=== PATIENT | male | born 1990 | race Two or more races ===

== ENCOUNTER 2022-08-12 19:13 | Emergency (ER) | payer OTHER ==
[~2022-08-12] VITALS: Ht 182.9 cm; Wt 69.5 kg
[2022-08-12 19:50] VITALS: BP 136/91
[2022-08-12] MEDS ORDERED: TETanus/Pertussis (Acell)/Diphther VAC/PF (Tdap-Adult) 0.5ml syringe IMVAC ONE (19:55)
[2022-08-12] MEDS ORDERED: bacitracin 15gm ointment TP ONE (19:55)
[2022-08-12] MEDS ORDERED: amox tr/potassium clavulanate 875/125mg TAB PO ONE (19:55)
[2022-08-12] MEDS ORDERED: AMOX-117 PO (20:26)
== END 2022-08-12 20:58 | disposition home or self-care (01) ==
LOC: ER 19:15
DX: S51.852A Open bite of left forearm, initial encounter (principal); S41.052A Open bite of left shoulder, initial encounter; S21.152A Open bite of left front wall of thorax without penetration into thoracic cavity, initial encounter; W50.3XXA Accidental bite by another person, initial encounter; Y93.89 Activity, other specified; Y92.89 Other specified places as the place of occurrence of the external cause; Y99.8 Other external cause status; Z79.899 Other long term (current) drug therapy
CPT/HCPCS: 90471; 90715; 99283